=== PATIENT | female | born 1990 | race Caucasian/White ===

== ENCOUNTER 2017-06-07 05:17 | Emergency (ER) | payer BC ==
[2017-06-07 05:23] VITALS: BP 123/90
[2017-06-07] MEDS ORDERED: Amoxicillin/Clavulanate TAB* 875 MG PO ONE (06:10)
[2017-06-07] MEDS ORDERED: Ibuprofen TAB* 600 MG PO ONE (06:10)
--- NOTE | 2017-06-07 06:18 | ED ---
Jessica Mccain Alfonso, scribed for Emiliano Lemos MD on 06/07/17 at 0612 . Skin Complaint - HPI Summary HPI Summary: This patient is a 26 year old F presenting to [facility] with a chief complaint of a cat bite at her right hand at 1999 yesterday. The patient rates the pain 5/10 in severity. Symptoms aggravated by nothing and alleviated by ice. She reports right hand redness. - History of Current Complaint Chief Complaint: EDAnimalBite Time Seen by Provider: 06/07/17 06:03 Stated Complaint: CAT BITE Hx Obtained From: Patient Onset/Duration: Started Hours Ago - 1999 yesterday, Traumatic - cat bite, Still Present Timing: Constant Onset Severity: Moderate Current Severity: Moderate Pain Intensity: 5 Pain Scale Used: 0-10 Numeric Skin Location: Hand - right Character: Redness Aggravating Symptom(s): Nothing Alleviating Symptom(s): Nothing - Allergy/Home Medications Allergies/Adverse Reactions: Allergies Allergy/AdvReac Type Severity Reaction Status Date / Time No Known Allergies Allergy Verified 07/25/16 16:27 PMH/Surg Hx/FS Hx/Imm Hx Endocrine/Hematology History: Reports: Hx Thyroid Disease - Hypothyroidism Musculoskeletal History: Reports: Hx Orthopedic Injury - torn ligament to wrist Psychiatric History: Reports: Hx Anxiety, Hx Eating Disorder - Bulimia, Hx Depression - Surgical History Surgery Procedure, Year, and Place: torn ligament, wrist- Infectious Disease History: Yes Infectious Disease History: Denies: Traveled Outside the [place] in Last 30 Days - Family History Known Family History: Positive: Other - CVA (father at age 53) - Social History Alcohol Use: Weekly Hx Substance Use: No Substance Use Type: Reports: None Hx Tobacco Use: No Smoking Status (MU): Never Smoked Tobacco Review of Systems Negative: Fever Positive: Other - Positive right hand cat bite. Positive: Other - Positive right hand redness All Other Systems Reviewed And Are Negative: Yes Physical Exam Triage Information Reviewed: Yes Vital Signs On Initial Exam: Initial Vitals Temp Pulse Resp BP Pulse Ox 98 F 71 16 123/90 100 06/07/17 05:18 06/07/17 05:18 06/07/17 05:18 06/07/17 05:18 06/07/17 05:18 Vital Signs Reviewed: Yes Appearance: Positive: Well-Appearing, No Pain Distress Skin: Positive: Warm, Skin Color Reflects Adequate Perfusion, Dry, Other - Puncture wound at the right thumb PIP. Pain with ROM. Erythema. No streaking. Head/Face: Positive: Normal Head/Face Inspection Eyes: Positive: EOMI, GEORGINA ENT: Positive: Normal ENT inspection Neck: Positive: Supple, Nontender Respiratory/Lung Sounds: Positive: Clear to Auscultation, Breath Sounds Present Cardiovascular: Positive: RRR Abdomen Description: Positive: Nontender, Soft Bowel Sounds: Positive: Present Musculoskeletal: Positive: Normal, Strength/ROM Intact, Other - No swelling of right hand. Neurological: Positive: Normal, Sensory/Motor Intact, Alert, Oriented to Person Place, Time Psychiatric: Positive: Affect/Mood Appropriate Diagnostics - Vital Signs Vital Signs Temp Pulse Resp BP Pulse Ox 06/07/17 05:18 98 F 71 16 123/90 100 - Laboratory Lab Statement: Any lab studies that have been ordered have been reviewed, and results considered in the medical decision making process. Course/Dx - Course Course Of Treatment: RX AUGMENTIN. DISCUSSED WITH PATIENT TO F/U RIGHT AWAY IF WOUND WORSENS. - Diagnoses Provider Diagnoses: Cat bite of right thumb with infection Discharge - Discharge Plan Condition: Stable Disposition: HOME Prescriptions: Amoxicillin/Clavulanate TAB* [Augmentin TAB 875*] 875 mg PO BID #19 tab Patient Education Materials: Animal Bite (ED) Referrals: Wendy Grullon NP [Primary Care Provider] - Ankit Webb MD [Medical Doctor] - [facility] [Outside] Additional Instructions: FOLLOW UP WITH YOUR DOCTOR. RETURN TO THE EMERGENCY DEPARTMENT FOR ANY WORSENING OF YOUR CONDITION; FEVER, PAIN, SPREAD OF INFECTION OR QUESTIONS OR CONCERNS. The documentation as recorded by the Jessica gabriel Alfonso accurately reflects the service I personally performed and the decisions made by me, Emiliano Lemos MD.
== END 2017-06-07 06:20 | disposition home or self-care (01) ==
LOC: ED 05:17
DX: S61.051A Open bite of right thumb without damage to nail, initial encounter (principal); L08.9 Local infection of the skin and subcutaneous tissue, unspecified; W55.01XA Bitten by cat, initial encounter; Y93.9 Activity, unspecified; Y92.9 Unspecified place or not applicable
CPT/HCPCS: 99282; A9270-GY

== ENCOUNTER 2017-07-16 16:54 | Emergency (ER) | payer BC ==
[2017-07-16 17:08] VITALS: BP 139/99
[2017-07-16] MEDS ORDERED: Benzoin Compound STICK TOPICAL ONE (18:27)
--- NOTE | 2017-07-16 18:36 | UC ---
Laceration HPI - HPI Summary HPI Summary: patient has hx of cutting--cut left thigh last night seen therapist today who advised her to get the wound checked--patient has a 4 cm linear laceration on left upper thigh some drainage--- - History Of Current Complaint Chief Complaint: UCLaceration Stated Complaint: LACERATION Time Seen by Provider: 07/16/17 17:34 Hx Obtained From: Patient Hx Last Menstrual Period: one week ago Laceration Location: Thigh Mechanism Of Injury: Sharp Trauma Onset/Duration: Sudden Onset, Lasting Days - 1 Severity: Mild Pain Intensity: 2 Pain Scale Used: 0-10 Numeric Aggravating Factors: Nothing - Allergies/Home Medications Allergies/Adverse Reactions: Allergies Allergy/AdvReac Type Severity Reaction Status Date / Time No Known Allergies Allergy Verified 07/16/17 17:09 PMH/Surg Hx/FS Hx/Imm Hx Previously Healthy: No Psychological History: Depression, Other Other Psychological History: self injuring - Surgical History Surgical History: None Surgery Procedure, Year, and Place: torn ligament, wrist- - Family History Known Family History: Positive: Other - CVA (father at age 53) - Social History Occupation: Employed Full-time Lives: Alone Alcohol Use: Occasionally Substance Use Type: Prescribed Smoking Status (MU): Never Smoked Tobacco - Immunization History Most Recent Influenza Vaccination: may 2016 Most Recent Tetanus Shot: within last 10 years Most Recent Pneumonia Vaccination: never Review of Systems Constitutional: Negative Skin: Negative, Other - 4 cm laeration left thigh Eyes: Negative ENT: Negative Respiratory: Negative Cardiovascular: Negative Gastrointestinal: Negative Genitourinary: Negative Motor: Negative Neurovascular: Negative Musculoskeletal: Negative Neurological: Negative Psychological: Negative Is Patient Immunocompromised?: No All Other Systems Reviewed And Are Negative: Yes Physical Exam Triage Information Reviewed: Yes Appearance: Well-Appearing, No Pain Distress, Well-Nourished Vital Signs: Initial Vital Signs Temp 98.7 F 07/16/17 17:03 Pulse 58 07/16/17 17:03 Resp 12 07/16/17 17:03 BP 139/99 07/16/17 17:03 Pulse Ox 100 07/16/17 17:03 Vital Signs Reviewed: Yes Eye Exam: Normal Eyes: Positive: Conjunctiva Clear ENT Exam: Normal ENT: Positive: Normal ENT inspection, Hearing grossly normal. Negative: Nasal congestion, Nasal drainage, Trismus, Muffled/hoarse voice Dental Exam: Normal Neck exam: Normal Neck: Positive: Supple, Nontender, No Lymphadenopathy Respiratory Exam: Normal Respiratory: Positive: Chest non-tender, No respiratory distress, No accessory muscle use Cardiovascular Exam: Normal Cardiovascular: Positive: RRR, Pulses Normal, Brisk Capillary Refill Musculoskeletal Exam: Normal Musculoskeletal: Positive: Strength Intact, ROM Intact, No Edema Neurological Exam: Normal Neurological: Positive: Alert, Muscle Tone Normal Psychological Exam: Normal Psychological: Positive: Normal Response To Family, Other: - denies HI/SI Skin Exam: Normal Skin: Positive: Other - 4 cm laceration left thigh Laceration Repair - Laceration Repair 1 Description: Linear Laceration Size After Repair: Length (cm) - 4, Width (mm) - 5, Depth (mm) - 2 Modified For Repair: No Cleansing Completed Via Routine Prep: Yes Irrigation With Pressure Irrigation Device: Yes Closure Material: SteriStrips Laceration Course/Dx - Course/Dx Course Of Treatment: allow steri strips to fall off on their own observe daily for s/s of infection, follow with [facility] on Sunday as planned - Differential Dx - Laceration/Wound Differental Diagnoses: Healing Wound, Laceration, Other - SM behaviors, anxiety Provider Diagnoses: 4 cm LAceration left thigh Discharge - Discharge Plan Condition: Stable Disposition: HOME Prescriptions: Cephalexin CAP* [Keflex CAP*] 500 mg PO QID #28 cap Patient Education Materials: Steristrips (ED), Cephalexin (By mouth) Referrals: Wendy Grullon NP [Primary Care Provider] - 07/19/17 Additional Instructions: Follow with [facility] and therapist as planned
== END 2017-07-16 18:47 | disposition home or self-care (01) ==
LOC: UCEAST 16:54
DX: S71.112A Laceration without foreign body, left thigh, initial encounter (principal); X78.9XXA Intentional self-harm by unspecified sharp object, initial encounter; Y92.9 Unspecified place or not applicable
CPT/HCPCS: 99212; G0463

== ENCOUNTER 2018-06-12 07:03 | Emergency (ER) | payer BC ==
[2018-06-12 07:17] VITALS: BP 134/99
--- NOTE | 2018-06-12 07:18 | UC ---
Abdominal Pain Female HPI - HPI Summary HPI Summary: A 27 y/o F presents to [facility] with c/o intense R-sided abd pain onset 0300 which woke her from sleep. Pain radiated to her back and is rated as 4/5 out of 10 at bedside. At its worst, she rated the pain 7/8 out of 10. After an hour it mostly dissipated, but when she woke up this AM, the pain had returned. Associated sx: mild diarrhea. Denies n/v, fever, chills. She states it is more painful than her appendicitis two years ago. PMHx: bulimia, depression, anxiety , drinking more ETOH recently. She sees a psychiatrist and therapist. She had one drink last night. Non-smoker, no drugs. - History of Current Complaint Stated Complaint: ABD/BACK PAIN Time Seen by Provider: 06/12/18 07:09 Hx Obtained From: Patient Hx Last Menstrual Period: one week ago Onset/Duration: Sudden Onset, Lasting Hours, Still Present Timing: Constant Severity Initially: Severe Severity Currently: Moderate Pain Intensity: 5 Pain Scale Used: 0-10 Numeric Location: Diffuse - R sided Radiates: Yes Radiates to: Back Associated Signs and Symptoms: Positive: Diarrhea. Negative: Fever, Nausea, Vomiting Allergies/Adverse Reactions: Allergies Allergy/AdvReac Type Severity Reaction Status Date / Time No Known Allergies Allergy Verified 06/12/18 07:17 Home Medications: Home Medications Lurasidone(*) [Latuda] 20 mg PO DAILY 06/12/18 [History Confirmed 06/12/18] PMH/Surg Hx/FS Hx/Imm Hx Previously Healthy: No - bulemia Psychological History: Anxiety, Depression - Surgical History Surgical History: Yes Surgery Procedure, Year, and Place: torn ligament, wrist-07; appy - Family History Known Family History: Positive: Other - CVA (father at age 53); [place] - Social History Occupation: Employed Full-time Lives: With Family Alcohol Use: Occasionally Substance Use Type: Prescribed Smoking Status (MU): Never Smoked Tobacco - Immunization History Most Recent Influenza Vaccination: may 2016 Most Recent Tetanus Shot: within last 10 years Most Recent Pneumonia Vaccination: never Review of Systems Constitutional: Negative - fever, chills Gastrointestinal: Negative - vomiting and nausea, Abdominal Pain - R-sided radiating to back, Diarrhea All Other Systems Reviewed And Are Negative: Yes Physical Exam - Summary Physical Exam Summary: VITAL SIGNS: Reviewed. GENERAL: Patient is a well-developed and nourished FEMALE who is lying comfortable in the stretcher. Patient is not in any acute respiratory distress. HEAD AND FACE: Normocephalic EYES: PERRLA, EOMI x 2. EARS: Hearing grossly intact. MOUTH: Oropharynx within normal limits. NECK: Supple, trachea is midline, no adenopathy, no JVD, no carotid bruit. CHEST: Symmetric, no tenderness at palpation LUNGS: Clear to auscultation bilaterally. No wheezing or crackles. CVS: Regular rate and rhythm, S1 and S2 present, no murmurs or gallops appreciated. ABDOMEN: Positive R CVA tenderness; positive RUQ tenderness, no rebound, no guarding. EXTREMITIES: Full ROM in all major joints, no edema, no cyanosis or clubbing. NEURO: Alert and oriented x 3. No acute neurological deficits. Speech is normal and follows commands. SKIN: Dry and warm Triage Information Reviewed: Yes Vital Signs Reviewed: Yes Abd Pain Female Course/Dx - Course Course Of Treatment: The patient was found to have increased BP in UC. The patient will follow up with PCP for better control of BP. . Patient is a 27-year-old female who presents to the urgent care with chief complaint of having right flank pain and right upper quadrant pain. Patient reports that the pain is 8-9 out of 10. Patient denies any nausea or vomiting. I believe the patient would benefit upper work and further workup in the emergency department. Therefore the patient will be discharged to the emergency department. The patient declined ambulance transfer. The patient is hemodynamically stable alert and oriented 3. - Differential Dx/Diagnosis Provider Diagnoses: Right flank pain. Right upper quadrant pain Discharge - Sign-Out/Discharge Documenting (check all that apply): Patient Departure - sent to ED All imaging exams completed and their final reports reviewed: No Studies - Discharge Plan Condition: Stable Disposition: HOME-RECOMMEND TO ED Patient Education Materials: Abdominal Pain (ED) Referrals: Irene Melchor DIRECT MAIL MANAGER [Primary Care Provider] - Additional Instructions: Patient was recommended to go to the emergency department for further workup and management. Patient declined ambulance transfer. FOLLOW UP WITH YOUR PRIMARY CARE PROVIDER WITHIN ONE WEEK FOR HIGH BLOOD PRESSURE NOTED TODAY. - Billing Disposition and Condition Condition: STABLE Disposition: Home-Recommend to ED - Attestation Statements Document Initiated by Scribe: Yes Documenting Scribe: Janes Daniels Provider For Whom Scribe is Documenting (Include Credential): Parminder Durant MD Scribe Attestation: Janes Mccain, scribed for Parminder Durant MD on 06/12/18 at 0719. Scribe Documentation Reviewed: Yes Provider Attestation: The documentation as recorded by the Janes gabriel accurately reflects the service I personally performed and the decisions made by me, Parminder Durant MD
== END 2018-06-12 07:20 | disposition home health service (06) ==
LOC: UCEAST 07:03
DX: R10.11 Right upper quadrant pain (principal); R19.7 Diarrhea, unspecified; F32.9 Major depressive disorder, single episode, unspecified; F41.9 Anxiety disorder, unspecified; Z79.899 Other long term (current) drug therapy; R03.0 Elevated blood-pressure reading, without diagnosis of hypertension
CPT/HCPCS: 99212; G0463

== ENCOUNTER 2018-06-12 07:54 | Emergency (ER) | payer BC ==
[2018-06-12] MEDS ORDERED: NS 0.9% 1000 ML* 1,000 ML IV ONE (08:10)
[2018-06-12] MEDS ORDERED: Ketorolac INJ* 30 MG/ML 1 ML VIAL IV PUSH ONE (08:10)
--- NOTE | 2018-06-12 08:20 | ED ---
GI/ HPI - HPI Summary HPI Summary: 27-year-old female presents with abdominal pain since last night. She started after she had a fish hopkins. She admits occasional nausea but no vomiting. She admits to diarrhea. No blood in her stool. Denies eating anything different. No one else is sick. No dysuria or hematuria. she admits to urgency. No vaginal discharge. Has never had this pain before. States pain is worse when she takes deep breath. no family history of blood clots. She is on control. No fevers. Has history of hypothyroidism and depression. Has had her appendix removed. - History of Current Complaint Chief Complaint: EDAbdPain Time Seen by Provider: 06/12/18 08:05 Stated Complaint: RT FLANK PAIN-SENT FROM [facility] Hx Last Menstrual Period: one week ago Pain Intensity: 5 - Allergy/Home Medications Allergies/Adverse Reactions: Allergies Allergy/AdvReac Type Severity Reaction Status Date / Time No Known Allergies Allergy Verified 06/12/18 08:16 Home Medications: Home Medications ALPRAZolam [Alprazolam] 1 tab PO DAILY PRN 06/12/18 [History Confirmed 06/12/18] Norgestimate-Ethinyl Estradiol [Tri Femynor 28 Tablet] 1 tab PO DAILY 06/12/18 [ History Confirmed 06/12/18] PMH/Surg Hx/FS Hx/Imm Hx Endocrine/Hematology History: Reports: Hx Thyroid Disease - Hypothyroidism Musculoskeletal History: Reports: Hx Orthopedic Injury - torn ligament to wrist ' Psychiatric History: Reports: Hx Anxiety, Hx Eating Disorder - Bulimia, Hx Depression - Surgical History Surgery Procedure, Year, and Place: torn ligament, wrist-[facility] Infectious Disease History: No Infectious Disease History: Reports: Hx of Known/Suspected MRSA Denies: Traveled Outside the [place] in Last 30 Days - Family History Known Family History: Positive: Other - CVA (father at age 53); [place] - Social History Alcohol Use: Occasionally Alcohol Amount: 2-3 spiked setzers Hx Substance Use: No Substance Use Type: Reports: Prescribed Hx Tobacco Use: No Smoking Status (MU): Never Smoked Tobacco Review of Systems Negative: Fever Negative: Chest Pain Negative: Shortness Of Breath Positive: Abdominal Pain, Diarrhea, Nausea. Negative: Vomiting All Other Systems Reviewed And Are Negative: Yes Physical Exam Triage Information Reviewed: Yes Vital Signs On Initial Exam: Initial Vitals Temp Pulse Resp BP Pulse Ox 98.7 F 80 17 138/102 100 06/12/18 07:57 06/12/18 07:57 06/12/18 07:57 06/12/18 07:57 06/12/18 07:57 Vital Signs Reviewed: Yes Appearance: Positive: Well-Appearing Skin: Positive: Warm, Dry Head/Face: Positive: Normal Head/Face Inspection Eyes: Positive: Normal, Conjunctiva Clear ENT: Positive: Pharynx normal Respiratory/Lung Sounds: Positive: Clear to Auscultation, Breath Sounds Present Cardiovascular: Positive: Normal, RRR Abdomen Description: Positive: Soft, CVA Tenderness (R), Other: - tenderness RUQ. pos bishop Bowel Sounds: Positive: Present Musculoskeletal: Positive: Normal Neurological: Positive: Normal Psychiatric: Positive: Normal Diagnostics - Vital Signs Vital Signs Temp Pulse Resp BP Pulse Ox 06/12/18 07:57 98.7 F 80 17 138/102 100 - Laboratory Result Diagrams: 06/12/18 08:20 06/12/18 08:20 Lab Statement: Any lab studies that have been ordered have been reviewed, and results considered in the medical decision making process. - Ultrasound No standard instances Ultrasound Interpretation: No Acute Changes Ultrasound Interpretation Completed By: Radiologist NILDA Course/Dx - Course Course Of Treatment: 27-year-old female presents with abdominal pain since last night. She started after she had a fish hopkins. She admits occasional nausea but no vomiting. She admits to diarrhea. No blood in her stool. Denies eating anything different. No one else is sick. No dysuria or hematuria. she admits to urgency. No vaginal discharge. Has never had this pain before. States pain is worse when she takes deep breath. no family history of blood clots. She is on control. No fevers. Has history of hypothyroidism and depression. Has had her appendix removed. on exam has tenderness RUQ and right CVA. wbc normal. crp normal. gallbladder u/s normal. urine shows uti. will treat with cipro for potential pyelo with flank pain. patient understand and agrees with plan. - Diagnoses Differential Diagnoses - Female: Cholelithiasis, Cholecystitis, Gastroenteritis (Viral) Provider Diagnoses: UTI (urinary tract infection) Discharge - Sign-Out/Discharge Documenting (check all that apply): Patient Departure - Discharge Plan Condition: Good Disposition: HOME Prescriptions: Ciprofloxacin TAB* [Cipro 500 MG TAB*] 500 mg PO BID #13 tab Patient Education Materials: Kidney Infection (ED) Referrals: Irene Melchor NP [Primary Care Provider] - Additional Instructions: Take antibiotic twice a day for 7 days Drink plenty of water Take Tylenol or ibuprofen every 6 hours as needed for pain and fever Return to ED if develop severe vomiting, or any new or worsening symptoms - Billing Disposition and Condition Condition: GOOD Disposition: Home
[2018-06-12 08:45] LABS: ABS Basophils 0 10^3/ul (0-0.2); ABS Eosinophils 0 10^3/ul (0-0.6); ABS Lymphocytes 1.1 10^3/ul (1.0-4.8); ABS Monocytes 0.4 10^3/ul (0-0.8); ABS Neutrophils 5.4 10^3/ul (1.5-7.7); ABS Nucleated RBC 0 10^3/ul; Eosinophil % 0.6 % (0-6); Hematocrit 39 % (35-47); Hemoglobin 13.6 g/dl (12.0-16.0); Lymphocyte % 15.9 % (25-47); Mean Corpuscular HGB Conc 35 g/dl (31-36); Mean Corpuscular Hemoglobin 34 pg (27-31); Mean Corpuscular Volume 96 fL (80-97); Mean Platelet Volume 7.1 um3 (7.4-10.4); Nucleated Red Blood Cells % 0; Platelet Count 192 10^3/ul (150-450); Red Blood Count 4.04 10^6/ul (4.00-5.40); Red Cell Distribution Width 13 % (10.5-15)
[2018-06-12 09:00] LABS: EGFR Non-African American 98.9 (>60)
--- NOTE | 2018-06-12 09:28 | RAD ---
Indication: Right upper quadrant pain. Real-time sonography of the right upper quadrant was performed. The liver is enlarged measuring 19.1 cm in length. No focal lesions or intrahepatic duct dilatation is noted. The gallbladder demonstrates no gallstones, pericholecystic fluid or wall thickening. The common duct measures 2 mm. The right kidney measures 12.2 x 3.9 x 5.2 cm with no hydronephrosis. The pancreas head, neck and proximal body demonstrates no mass or pancreatic duct dilatation. Aorta and inferior vena cava are unremarkable. IMPRESSION: No evidence of cholelithiasis or biliary duct dilatation.
[2018-06-12 09:54] LABS: Urine Appearance Clear; Urine Blood 2+ (Negative); Urine Color Straw; Urine Ketones Trace (Negative); Urine Protein Negative (Negative); Urine Red Blood Cell 2+(6-10/hpf) (Absent); Urine Specific Gravity 1.005 (1.010-1.030); Urine Urobilinogen Negative (Negative); Urine White Blood Cell 2+(11-20/hpf) (Absent)
[2018-06-12] MEDS ORDERED: Ciprofloxacin 400MG IVPREMIX(* 400 MG/200 ML BAG IVPB ONE (09:59)
[2018-06-12 11:33] VITALS: BP 125/95
--- NOTE | 2018-06-14 06:56 | PN ---
Progress Note - Progress Note Date of Service: 06/14/18 Note: Patient's urine culture grew Staphylococcus greater than 100,000. Placed on Cipro which should be sensitive. No further action required.
== END 2018-06-12 11:35 | disposition home or self-care (01) ==
LOC: ED 07:54
DX: N39.0 Urinary tract infection, site not specified (principal); R11.0 Nausea; R19.7 Diarrhea, unspecified; R10.9 Unspecified abdominal pain
CPT/HCPCS: 36415; 76705; 80053; 81003; 81015; 83690; 84702; 85025; 86140; 87077; 87086; 96365; 96375; 99283; J0744; J1885

== ENCOUNTER 2019-02-02 13:15 | Emergency (ER) | payer BC ==
[2019-02-02 13:28] VITALS: BP 119/74
--- NOTE | 2019-02-02 13:30 | UC ---
Laceration HPI - HPI Summary HPI Summary: 28 yo female presents with laceration to right anterior thigh. She tells me that about 2 hours [employer] MANA[employer] she went into her bathroom and disassembled a razor and cut herself in the thigh. She tells me that she has a long mental health history and issues with anxiety, depression, and alcohol abuse. She is currently seeing a therapist and a psychiatrist. She is weaning off alcohol currently with close mental health follow up and med adjustments. She has cut herself in the past out of frustration/depression/anxiety/confusion. Today she was running errands around town and her boyfriend called her and pt became anxious that boyfriend thought she was sneaking alcohol. She got home and took a xanax, but did not have relief of her anxiety soon enough. She felt that she wanted to cry, but states that the "lamictal" makes it so she cannot cry. She became frustrated and cut herself in the thigh. She immediately regretted this. When her boyfriend got home, she told him and boyfriend suggested she be seen for the cut. Pt tells me that, in the past, she cut herself and developed a skin infection - this is what she is most concerned about today. She says she has a great support system and feels safe at home with her boyfriend. She denies suicidal ideations and states that she does not want to hurt herself anymore and that this was "a dumb mistake". She is following up with her psychiatrist this week. - History Of Current Complaint Chief Complaint: UCLaceration Stated Complaint: RT LEG LAC Time Seen by Provider: 02/02/19 13:29 Hx Obtained From: Patient Hx Last Menstrual Period: 02/02/19 Laceration Location: Leg Mechanism Of Injury: Sharp Trauma Onset/Duration: Sudden Onset Severity: Mild Pain Intensity: 1 Pain Scale Used: 0-10 Numeric - Allergies/Home Medications Allergies/Adverse Reactions: Allergies Allergy/AdvReac Type Severity Reaction Status Date / Time No Known Allergies Allergy Verified 02/02/19 13:26 Home Medications: Home Medications [place] Carbonate [[place] Carbonate 600 mg cap] 600 mg PO QPM 02/02/19 [ History Confirmed 02/02/19] PMH/Surg Hx/FS Hx/Imm Hx Psychological History: Anxiety, Depression, Bipolar Disorder - Surgical History Surgical History: Yes Surgery Procedure, Year, and Place: torn ligament, wrist-07; appy - Family History Known Family History: Positive: Other - CVA (father at age 53); [place] - Social History Occupation: Employed Full-time Lives: With Family Alcohol Use: Daily Alcohol Amount: 1 a day, pt working on recovery Substance Use Type: Prescribed Smoking Status (MU): Never Smoked Tobacco - Immunization History Most Recent Influenza Vaccination: may 2016 Most Recent Tetanus Shot: within last 10 years Most Recent Pneumonia Vaccination: never Review of Systems All Other Systems Reviewed And Are Negative: Yes Constitutional: Positive: Negative Skin: Positive: Other - laceration right thigh Respiratory: Positive: Negative Cardiovascular: Positive: Negative Neurological: Positive: Negative Psychological: Positive: Negative Physical Exam - Summary Physical Exam Summary: GENERAL: NAD. WDWN. No pain distress. SKIN: RIGHT ANTERIOR THIGH: 4.0cm linear laceration partially through the epidermis. Scant bleeding and dried blood. Clean wound. No exposed subcutaneous fat. CHEST: No accessory muscle use. Breathing comfortably and in no distress. CV: Pulses intact. Cap refill <2seconds NEURO: Alert. PSYCH: Age appropriate behavior. Triage Information Reviewed: Yes Vital Signs: Initial Vital Signs Temp 98.6 F 02/02/19 13:20 Pulse 71 02/02/19 13:20 Resp 18 02/02/19 13:20 BP 119/74 02/02/19 13:20 Pulse Ox 99 02/02/19 13:20 Vital Signs Reviewed: Yes Laceration Repair - Laceration Repair 1 Description: Linear Laceration Size After Repair: Length (cm) - 4.0 Cleansing Completed Via Routine Prep: Yes Closure Material: Skin Adhesive Closure Method: Single Layer Laceration Course/Dx - Course/Dx Course Of Treatment: Discussed at length with pt about her safety. In the presence of myself and Rosalia RN - pt agreed to a verbal contract for safety and agrees not to harm herself by cutting or other manners any longer. She admits that this was a dumb mistake and her "mind got the best of her". She has good support at home and through outpatient mental health. She denies suicidal ideation and does not want to harm others. She is feeling much better than earlier. I encouraged her to call us or to come to the clinic if she finds herself in a similar situation. - Diagnosis Provider Diagnosis: Intentional self-harm, Laceration Discharge - Sign-Out/Discharge Documenting (check all that apply): Patient Departure All imaging exams completed and their final reports reviewed: No Studies - Discharge Plan Condition: Stable Disposition: HOME Patient Education Materials: Skin Adhesive Care (ED) Referrals: Irene Melchor NP [Primary Care Provider] - Additional Instructions: If you develop a fever, shortness of breath, chest pain, new or worsening symptoms - please call your PCP or go to the ED. Bandage the area until well healed. Please follow up with mental health as soon as possible - Billing Disposition and Condition Condition: STABLE Disposition: Home - Attestation Statements Provider Attestation: I was available for consult. This patient was seen by the YOHANNES. The patient was not presented to , seen by or examined by me -Frida Sloan MD
== END 2019-02-02 14:00 | disposition home or self-care (01) ==
LOC: UCEAST 13:15
DX: S71.111A Laceration without foreign body, right thigh, initial encounter (principal); X78.8XXA Intentional self-harm by other sharp object, initial encounter; Y92.002 Bathroom of unspecified non-institutional (private) residence as the place of occurrence of the external cause; F41.9 Anxiety disorder, unspecified; F31.9 Bipolar disorder, unspecified
CPT/HCPCS: 12002; 99211; G0463

== ENCOUNTER 2019-02-16 11:40 | Emergency (ER) | payer BC ==
[2019-02-16 12:02] VITALS: BP 103/64
--- NOTE | 2019-02-16 12:12 | UC ---
Complaint Female HPI - HPI Summary HPI Summary: Burning urination x 2 days, starting to have some back pain - History Of Current Complaint Chief Complaint: UCGU Stated Complaint: URINARY ISSUE Time Seen by Provider: 02/16/19 11:59 Hx Obtained From: Patient Hx Last Menstrual Period: 02/08/19 Onset/Duration: Sudden Onset, Lasting Days - 2 Timing: Constant Severity Initially: Mild Severity Currently: Mild Pain Intensity: 2 Aggravating Factor(s): Urination Associated Signs And Symptoms: Positive: Back Pain - Allergies/Home Medications Allergies/Adverse Reactions: Allergies Allergy/AdvReac Type Severity Reaction Status Date / Time No Known Allergies Allergy Verified 02/16/19 12:03 Home Medications: Home Medications Desvenlafaxine Succinate [Pristiq] 25 mg PO DAILY 02/16/19 [History Confirmed ] PMH/Surg Hx/FS Hx/Imm Hx Previously Healthy: Yes - Surgical History Surgical History: Yes Surgery Procedure, Year, and Place: torn ligament, wrist-; appy - Family History Known Family History: Positive: Other - CVA (father at age 53); [place] - Social History Alcohol Use: Daily Alcohol Amount: 1 wine/day Substance Use Type: None Smoking Status (MU): Never Smoked Tobacco - Immunization History Most Recent Influenza Vaccination: may 2016 Most Recent Tetanus Shot: within last 10 years Most Recent Pneumonia Vaccination: never Review of Systems All Other Systems Reviewed And Are Negative: Yes Genitourinary: Positive: Dysuria Musculoskeletal: Positive: Myalgia Is Patient Immunocompromised?: No Physical Exam Triage Information Reviewed: Yes Appearance: Well-Appearing, Well-Nourished, Pain Distress Vital Signs: Initial Vital Signs Temp 97.8 F 02/16/19 11:56 Pulse 70 02/16/19 11:56 Resp 16 02/16/19 11:56 BP 103/64 02/16/19 11:56 Pulse Ox 99 02/16/19 11:56 Vital Signs Reviewed: Yes Eye Exam: Normal ENT Exam: Normal Dental Exam: Normal Neck exam: Normal Respiratory Exam: Normal Cardiovascular Exam: Normal Abdomen Description: Positive: Nontender, No Organomegaly, Soft, CVA Tenderness (R) - neg, CVA Tenderness (L) - neg Musculoskeletal Exam: Normal Neurological Exam: Normal Psychological Exam: Normal Skin Exam: Normal Complaint Female Dx - Course Course Of Treatment: hx obtained, exam performed ,meds reviewed, UA obtained and positive for UTI, treaed with macrobid - Differential Dx/Diagnosis Differential Diagnosis/HQI/PQRI: Urinary Tract Infection Provider Diagnosis: UTI (urinary tract infection) Discharge - Sign-Out/Discharge Documenting (check all that apply): Patient Departure All imaging exams completed and their final reports reviewed: No Studies - Discharge Plan Condition: Stable Disposition: HOME Prescriptions: Nitrofurantoin Monohyd/M-Cryst [Macrobid 100 mg Capsule] 100 mg PO BID #14 cap Patient Education Materials: Urinary Tract Infection in Women (ED) Referrals: Irene Melchor OFFICE DIRECTOR [Primary Care Provider] - Additional Instructions: 1. take the medication as prescribed. 2 INcrease fluid intake 3. Follow p if symtpoms worsen - Billing Disposition and Condition Condition: STABLE Disposition: Home - Attestation Statements Provider Attestation: I was available for consult. This patient was seen by the YOHANNES. The patient was not presented to , seen by or examined by co -Frida Sloan MD
--- NOTE | 2019-02-17 17:39 | UC ---
- Progress Note Progress Note: 02/17/2019 Urine culture positive for Staph. Saprophyticus Pt Rx Nitrofurantoin PO which covers it. No change Candace Lee PA-C Course/Dx - Diagnoses Provider Diagnoses: UTI (urinary tract infection) Discharge - Sign-Out/Discharge Documenting (check all that apply): Post-Discharge Follow Up All imaging exams completed and their final reports reviewed: No Studies - Discharge Plan Condition: Stable Disposition: HOME Prescriptions: Nitrofurantoin Monohyd/M-Cryst [Macrobid 100 mg Capsule] 100 mg PO BID #14 cap Patient Education Materials: Urinary Tract Infection in Women (ED) Referrals: Irene Melchor BUTTON SAWYER [Primary Care Provider] - Additional Instructions: 1. take the medication as prescribed. 2 INcrease fluid intake 3. Follow p if symtpoms worsen - Billing Disposition and Condition Condition: STABLE Disposition: Home
== END 2019-02-16 13:00 | disposition home or self-care (01) ==
LOC: UCEAST 11:40
DX: N39.0 Urinary tract infection, site not specified (principal); B95.7 Other staphylococcus as the cause of diseases classified elsewhere
CPT/HCPCS: 81003; 87077; 87086; 99212; G0463

== ENCOUNTER 2019-07-07 06:42 | Emergency (ER) | payer BC ==
--- NOTE | 2019-07-07 07:18 | ED ---
Psychiatric Complaint - HPI Summary HPI Summary: 28-year-old female presents for mental health evaluation today. She states she is just feed up. She does not have a plan. States she's never had a plan before. She denies any homicidal ideation. States she is more anxious. She was just started on Xanax she says which occasionally helps. She just got a new psychiatrist. She does have a therapist. She feels that life is out of control. She does drink 2 glasses of wine daily. States she is going through rehabilitation for her alcohol dependence. She denies any drug use. - History Of Current Complaint Chief Complaint: EDMentalHealth Time Seen by Provider: 07/07/19 06:57 Hx Last Menstrual Period: 02/08/19 - Allergies/Home Medications Allergies/Adverse Reactions: Allergies Allergy/AdvReac Type Severity Reaction Status Date / Time No Known Allergies Allergy Verified 07/07/19 06:46 PMH/Surg Hx/FS Hx/Imm Hx Endocrine/Hematology History: Reports: Hx Thyroid Disease - Hypothyroidism Cardiovascular History: Denies: Hx Hypertension Musculoskeletal History: Reports: Hx Orthopedic Injury - torn ligament to wrist Psychiatric History: Reports: Hx Anxiety, Hx Eating Disorder - Bulimia, Hx Depression - Surgical History Surgery Procedure, Year, and Place: torn ligament, wrist-; appy Infectious Disease History: Yes Infectious Disease History: Reports: 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, 2006 Denies: Traveled Outside the [place] in Last 30 Days - Family History Known Family History: Positive: Other - CVA (father at age 53); [place] - Social History Alcohol Use: Daily Alcohol Amount: 1 wine/day Hx Substance Use: No Substance Use Type: Reports: None Hx Tobacco Use: No Smoking Status (MU): Never Smoked Tobacco Review of Systems Negative: Fever Negative: Chest Pain Negative: Shortness Of Breath Positive: Anxious, Depressed All Other Systems Reviewed And Are Negative: Yes Physical Exam Triage Information Reviewed: Yes Vital Signs On Initial Exam: Initial Vitals Temp Pulse Resp BP Pulse Ox 98.1 F 98 16 165/112 98 07/07/19 06:44 07/07/19 06:44 07/07/19 06:44 07/07/19 06:44 07/07/19 06:44 Vital Signs Reviewed: Yes Appearance: Positive: Well-Appearing Skin: Positive: Warm, Dry Head/Face: Positive: Normal Head/Face Inspection Eyes: Positive: Normal, Conjunctiva Clear ENT: Positive: Pharynx normal Respiratory/Lung Sounds: Positive: Clear to Auscultation, Breath Sounds Present Cardiovascular: Positive: Normal, RRR Musculoskeletal: Positive: Normal Neurological: Positive: Normal Psychiatric: Positive: Anxious, Depressed Diagnostics - Vital Signs Vital Signs Temp Pulse Resp BP Pulse Ox 07/07/19 06:44 98.1 F 98 16 165/112 98 - Laboratory Result Diagrams: 07/07/19 07:17 07/07/19 07:17 Lab Statement: Any lab studies that have been ordered have been reviewed, and results considered in the medical decision making process. Course/Dx - Course Course Of Treatment: 28-year-old female presents for mental health evaluation today. She states she is just feed up. She does not have a plan. States she' s never had a plan before. She denies any homicidal ideation. States she is more anxious. She was just started on Xanax she says which occasionally helps. She just got a new psychiatrist. She does have a therapist. She feels that life is out of control. She does drink 2 glasses of wine daily. States she is going through rehabilitation for her alcohol dependence. She denies any drug use. On exam has normal physical exam. Is medically clear for mental health. dr lakhani saw patient and will discharge for follow up in community. lithium is low so was given instruction on such by mental health - Differential Dx/Clinical Impression Differential Diagnosis/HQI/PQRI: Positive: Anxiety, Depression, Suicidal Ideation Provider Diagnosis: Depression Discharge ED - Sign-Out/Discharge Documenting (check all that apply): Patient Departure Patient Received Moderate/Deep Sedation with Procedure: No - Discharge Plan Condition: Stable Disposition: HOME Referrals: Irene Melchor NP [Primary Care Provider] - - Billing Disposition and Condition Condition: STABLE Disposition: Home
[2019-07-07 07:38] LABS: ABS Eosinophils 0.1 10^3/ul (0-0.6); ABS Monocytes 0.3 10^3/ul (0-0.8); ABS Neutrophils 4.8 10^3/ul (1.5-7.7); Eosinophil % 0.9 %; Hematocrit 40 % (35-47); Hemoglobin 13.9 g/dL (12.0-16.0); Lymphocyte % 15.5 %; Mean Corpuscular HGB Conc 35 g/dL (31-36); Mean Corpuscular Hemoglobin 33 pg (27-31); Mean Corpuscular Volume 95 fL (80-97); Mean Platelet Volume 6.8 fL (7.4-10.4); Platelet Count 177 10^3/uL (150-450); Red Blood Count 4.21 10^6 /uL (3.70-4.87); Red Cell Distribution Width 13 % (10-15); White Blood Count 6.1 10^3/uL (3.5-10.8)
[2019-07-07 07:47] LABS: ALT 14 U/L (7-52); AST 19 U/L (13-39); Albumin 4.2 g/dL (3.2-5.2); Albumin/Globulin Ratio 1.8 (1-3); Alkaline Phosphatase 37 U/L (34-104); Anion Gap 11 mmol/L (2-11); BUN/Creatinine Ratio 13.4 (8-20); Blood Urea Nitrogen 11 mg/dL (6-24); CO2 Carbon Dioxide 21 mmol/L (22-32); Calcium 8.5 mg/dL (8.6-10.3); Chloride 106 mmol/L (101-111); EGFR Non-African American 81.9 (>60); Globulin 2.3 g/dL (2-4); Glucose 89 mg/dL (70-100); Potassium 3.4 mmol/L (3.5-5.0); Sodium 138 mmol/L (135-145); Total Protein 6.5 g/dL (6.4-8.9)
[2019-07-07 08:12] LABS: HCG Pregnancy < 0.60 mIU/mL
[2019-07-07 08:25] LABS: Lithium 0.19 mmol/L (0.6-1.2)
[2019-07-07 08:56] LABS: Acetaminophen < 15 mcg/mL
[2019-07-07 08:57] LABS: Alcohol < 10 mg/dL (<10); Salicylate < 2.50 mg/dL (<30)
[2019-07-07 09:46] VITALS: BP 141/98
== END 2019-07-07 09:28 | disposition home or self-care (01) ==
LOC: ED 06:42
DX: F32.9 Major depressive disorder, single episode, unspecified (principal); F41.9 Anxiety disorder, unspecified; Z86.14 Personal history of Methicillin resistant Staphylococcus aureus infection
CPT/HCPCS: 36415; 80053; 80178; 80320; 80329; 84443; 84702; 85025; 99284; G0480